=== PATIENT | female | born 1955 | race African-American/Black ===

== ENCOUNTER → 2017-03-13 | Outpatient (CLI) | payer SELFPAY ==
[~2017-03-13] MED LIST: DEBROX15 ML BOTH EARS; FLONASE16 G1 BOTH NARES; GUAIFENESIN600 M1 PO; TESSALON PERLE100 MG PO
== END | disposition home or self-care (01) ==
LOC: RAD 09:24
DX: M25.511 Pain in right shoulder (principal); S49.91XD Unspecified injury of right shoulder and upper arm, subsequent encounter; R68.89 Other general symptoms and signs
CPT/HCPCS: 73030